=== PATIENT | female | born 1985 | race Caucasian/White ===

== ENCOUNTER → 2019-05-03 10:05 | Outpatient (BNVA) | payer SELFPAY | PROVIDERS: Family Provider Nurse Practitioner Family; PCP Nurse Practitioner Family; Visit Provider Obstetrics & Gynecology | DX: Z34.90 Encounter for supervision of normal pregnancy, unspecified, unspecified trimester (principal) | CPT/HCPCS: 36415; 80307; 81003; 84315; 85027; 86592; 86803; 86850; 86900; 87077; 87086; 87340; 87491; 87591; 88175 ==

== ENCOUNTER → 2019-06-01 10:25 | Outpatient (BNVA) | payer SELFPAY | PROVIDERS: Family Provider Nurse Practitioner Family; PCP Nurse Practitioner Family; Visit Provider Obstetrics & Gynecology | DX: Z34.82 Encounter for supervision of other normal pregnancy, second trimester (principal) | CPT/HCPCS: 81003; 84315 ==

== ENCOUNTER → 2019-06-27 13:07 | Outpatient (BNVA) | payer SELFPAY | PROVIDERS: Family Provider Nurse Practitioner Family; PCP Nurse Practitioner Family; Visit Provider Obstetrics & Gynecology | DX: Z34.82 Encounter for supervision of other normal pregnancy, second trimester (principal) | CPT/HCPCS: 76805 ==

== ENCOUNTER → 2019-06-28 13:51 | Outpatient (BNVA) | payer SELFPAY | PROVIDERS: Family Provider Nurse Practitioner Family; PCP Nurse Practitioner Family; Visit Provider Obstetrics & Gynecology | DX: Z34.90 Encounter for supervision of normal pregnancy, unspecified, unspecified trimester (principal) | CPT/HCPCS: 81003 ==

== ENCOUNTER → 2019-07-27 10:45 | Outpatient (BNVA) | payer MEDICAID, SELFPAY | PROVIDERS: Family Provider Nurse Practitioner Family; PCP Nurse Practitioner Family; Visit Provider Obstetrics & Gynecology | DX: Z34.82 Encounter for supervision of other normal pregnancy, second trimester (principal) | CPT/HCPCS: 81000 ==

== ENCOUNTER → 2019-07-30 13:48 | Outpatient (BNVA) | payer SELFPAY | PROVIDERS: Family Provider Nurse Practitioner Family; PCP Nurse Practitioner Family; Visit Provider Obstetrics & Gynecology | DX: Z34.90 Encounter for supervision of normal pregnancy, unspecified, unspecified trimester (principal); Z34.81 Encounter for supervision of other normal pregnancy, first trimester; O21.9 Vomiting of pregnancy, unspecified | CPT/HCPCS: 86762 ==

== ENCOUNTER → 2019-08-30 13:48 | Outpatient (BNVA) | payer MEDICAID, SELFPAY | PROVIDERS: Family Provider Nurse Practitioner Family; PCP Nurse Practitioner Family; Visit Provider Obstetrics & Gynecology | DX: Z34.82 Encounter for supervision of other normal pregnancy, second trimester (principal) | CPT/HCPCS: 81000; 82950; 85027 ==

== ENCOUNTER → 2019-09-10 10:43 | Outpatient (BNVA) | payer MEDICAID, SELFPAY | PROVIDERS: Family Provider Nurse Practitioner Family; PCP Nurse Practitioner Family; Visit Provider Obstetrics & Gynecology | DX: Z34.90 Encounter for supervision of normal pregnancy, unspecified, unspecified trimester (principal) | CPT/HCPCS: 81000 ==

== ENCOUNTER → 2019-09-27 13:01 | Outpatient (BNVA) | payer MEDICAID, SELFPAY | PROVIDERS: Family Provider Nurse Practitioner Family; PCP Nurse Practitioner Family; Visit Provider Obstetrics & Gynecology | DX: O98.813 Other maternal infectious and parasitic diseases complicating pregnancy, third trimester; O99.89 Other specified diseases and conditions complicating pregnancy, childbirth and the puerperium; Z3A.32 32 weeks gestation of pregnancy | CPT/HCPCS: 81000 ==

== ENCOUNTER → 2019-10-08 14:33 | Outpatient (BNVA) | payer MEDICAID, SELFPAY | PROVIDERS: Family Provider Nurse Practitioner Family; PCP Nurse Practitioner Family; Visit Provider Obstetrics & Gynecology | DX: O99.89 Other specified diseases and conditions complicating pregnancy, childbirth and the puerperium (principal); Z28.3 Underimmunization status; O99.820 Streptococcus B carrier state complicating pregnancy; R82.71 Bacteriuria; Z3A.34 34 weeks gestation of pregnancy | CPT/HCPCS: 81000 ==

== ENCOUNTER → 2019-10-22 13:18 | Outpatient (BNVA) | payer MEDICAID, SELFPAY | PROVIDERS: Family Provider Nurse Practitioner Family; PCP Nurse Practitioner Family; Visit Provider Obstetrics & Gynecology | DX: Z34.90 Encounter for supervision of normal pregnancy, unspecified, unspecified trimester (principal) | CPT/HCPCS: 81000 ==

== ENCOUNTER → 2019-10-26 10:28 | Outpatient (BNVA) | payer MEDICAID, SELFPAY | PROVIDERS: Family Provider Nurse Practitioner Family; PCP Nurse Practitioner Family; Visit Provider Nurse Practitioner Women's Health | DX: O99.89 Other specified diseases and conditions complicating pregnancy, childbirth and the puerperium (principal) | CPT/HCPCS: 81000 ==

== ENCOUNTER → 2019-11-01 12:58 | Outpatient (BNVA) | payer MEDICAID, SELFPAY | PROVIDERS: Family Provider Nurse Practitioner Family; PCP Nurse Practitioner Family; Visit Provider Obstetrics & Gynecology | DX: Z34.83 Encounter for supervision of other normal pregnancy, third trimester (principal) | CPT/HCPCS: 81000 ==

== ENCOUNTER → 2019-11-09 12:54 | Outpatient (BNVA) | payer MEDICAID, SELFPAY | PROVIDERS: Family Provider Nurse Practitioner Family; PCP Nurse Practitioner Family; Visit Provider Obstetrics & Gynecology | DX: O98.813 Other maternal infectious and parasitic diseases complicating pregnancy, third trimester (principal); O99.89 Other specified diseases and conditions complicating pregnancy, childbirth and the puerperium; Z3A.39 39 weeks gestation of pregnancy | CPT/HCPCS: 81000 ==

== ENCOUNTER 2019-11-13 16:30 | Inpatient (IN) | payer MEDICAID, SELFPAY ==
[2019-11-13] VITALS (56 sets, daily range): BP systolic 0–137; BP diastolic 0–82; PULSE 79–141; RESP 17; TEMP 37.1; O2SAT 98–100; BMI 28.6
[2019-11-13 16:44] LABS: Basophils # 0.1 10^3/uL (0.0-0.1); Basophils % 0.3 %; Eosinophils # 0.1 10^3/uL (0.0-0.8); Eosinophils % 0.6 %; Hematocrit 36.2 % (37.0-47.0); Hemoglobin 11.7 g/dL (11.5-15.3); Lymphocytes # 2.8 10^3/uL (0.8-4.8); Lymphocytes % 14.6 %; Mean Corpuscular HGB Conc 32.3 g/dL (30.0-36.0); Mean Corpuscular Hemoglobin 27.1 pg (28.0-34.0); Mean Platelet Volume 14.5 fL (7.4-10.4); Monocytes # 1.2 10^3/uL (0.2-0.9); Neutrophils # 14.81 10^3/uL (1.8-7.7); Neutrophils % 77.3 %; Nucleated Red Blood Cells % 0 %; Platelet Count 251 10^3/cmm (130-400); Red Blood Count 4.31 10^6/uL (4.1-5.3); Red Cell Distribution Width 13.2 % (12.1-15.1); White Blood Count 19.2 10^3/uL (4.0-10.0)
[2019-11-13] MEDS: ampicillin 2,000 MG in sodium chloride 0.9% (plus) 50 ML 100 MG IV (17:11)
[2019-11-13] MEDS: dextrose 5%-lactated ringers 1,000 ML 125 ML IV (17:11)
[2019-11-13 17:19] LABS: Slide Review Slide Review Perform
[2019-11-13] MEDS: lactated ringers 500 ML 999 ML IV ×2 (17:44→18:21)
--- NOTE | 2019-11-13 18:30 | ANES.PREANE2 ---
Pre-Anesthetic Assessment Pre-Anesthetic Assessment: Height/Weight: Height 1.63 m Weight 75.75 kg Temp Pulse Resp BP 98.7 F 102 H 17 115/68 11/13/19 11:58 11/13/19 18:27 11/13/19 11:58 11/13/19 18:27 Preop Diagnosis: IUP Proposed Procedure: Labor epidural Was Beta Bharat taken within 24 hours: N/A Last Intake: 05:03 Social: Social History: No alcohol and No tobacco Exam: Pre-Anes Outpt Exam: alert, oriented x 3 and clear to auscultation bilaterally Pulmonary: Pulmonary: None reported CV/HEM: CV/HEM: None reported : : None reported Hepatic: Hepatic: None reported GI: GI: None reported Metabolic: Metabolic: None reported Musc/skel: Musc/skel: None reported Anesthetic Plan: ASA status: 2 Anesthesia: Anesthesia Evaluation and Eval. for regional block Meds/Allergies Current Medications: Current Medications Generic Name Dose Route Start Last Admin Trade Name Freq PRN Reason Stop Dose Admin Dextrose/Lactated Ringer's 1,000 mls @ 125 m ls/hr 11/13/19 16:15 11/13/19 17:11 Dextrose 5%-Lact ated Ringers IV 125 mls/hr .Q8H MARIA TERESA Administration Lactated Ringer's 500 mls @ 999 mls /hr 11/13/19 17:39 11/13/19 18:21 Lactated Ringers IV 999 mls/hr .Q31M PRN Administration bolis, no 1000ml bags availabl PFSH Anesthesia PFSH: Medical History Group B streptococcal carriage complicating 05/23/2019: GBS asymptomatic bacteriuria. Will need prophylaxis in labor Surgical History [place] teeth extracted (~2002) at age 17 Family History Grandfather Stroke maternal Hypertension Diabetes Mother Breast cancer Grandmother Hypertension Diabetes Social History Smoking and tobacco status: former smoker Quit status (tobacco): has quit using tobacco Year quit tobacco: 2002 Alcohol intake: current Alcohol intake frequency: holidays/special occasions only Other details last substance use: Denies drug use Female Reproductive History: : 3 Para: 2 (1011) Spontaneous abortions: No Data Anesthesia CBC & Chem 7: 11/13/19 16:20 Other Labs: Laboratory Results - last 48 hr 11/13/19 16:20 WBC 19.2 H RBC 4.31 Hgb 11.7 Hct 36.2 L MCV 84.0 MCH 27.1 L MCHC 32.3 RDW 13.2 Plt Count 251 MPV 14.5 H Neut % (Auto) 77.3 Lymph % (Auto) 14.6 [place] % (Auto) 6.0 Eos % (Auto) 0.6 Baso % (Auto) 0.3 Neut # (Auto) 14.81 H Lymph # (Auto) 2.8 [place] # (Auto) 1.2 H Eos # (Auto) 0.1 Baso # (Auto) 0.1 Nucleated RBC % (auto) 0 Nucleated RBCs # 0.0 Cardiac Studies: No Data to Display
--- NOTE | 2019-11-13 19:11 | ANES.PROC ---
Anesthesia Procedures Procedure/Date: 11/13/19 Labor epidural Epidural: Time Out Performed: Yes Consents Signed: Procedure Consent Consent: requested by attending/covering physician, from patient, risks and benefits reviewed and patient agrees to proceed Lumbar Level: L3-L4 Epidural position: sitting Epidural procedure: sterile prep of area, 1% lidocaine to numb the area (3 cc), negative for paresthesia passed, neg for paresthesia, test dose given (3 cc), 1.5% xylocaine 1:200k epi, 0.2% Ropivacaine bolus ml (10 cc ), placed PCEA, no systemic response, sterile dressing applied, L.U.D. no apparent complications and 0.2% Ropiavacaine @ mls/hr (13 mls/hr ) Additional Comments: LAMBERT at 6 cm, catheter threaded to 13 cm at skin. Pump started with no complications. patient states pain is improving with contractions at this time. See OBYX system for VS
--- NOTE | 2019-11-13 19:31 | P.PN_ITS ---
Subjective Subjective: Interval history: 34-year-old white female 3, para 1-0-1-1 with an LMP of 02/06/2019 and an EDC of 11/13/2019 based on LMP and consistent with a 19-week ultrasound, which places her at 40-0/7 weeks gestation today. She presented to labor and delivery with complaint of contractions. She was found to be in labor after making cervical change. She currently has an ep idural and is very comfortable. She is without complaints at this time. Vitals/I&O/Wt Last Vital Signs Temp 98.7 F 11/13/19 11:58 Pulse 93 11/13/19 19:27 Resp 17 11/13/19 11:58 BP 131/63 11/13/19 19:27 Pulse Ox 100 11/13/19 19:26 11/13/19 11/13/19 11/13/19 06:59 14:59 22:59 Intake Total 500 / 500 Balance 500 / 500 Weight last 48 hrs Weight 167 lb Physical Exam Const: COMMON NORMALS: no acute distress, average body habitus, alert and well nourished GENERAL APPEARANCE: well developed ORIENTATION/CONSCIOUSNESS: Yes oriented to person, Yes oriented to place and Yes oriented to time : OTHER: External genitalia: No lesions seen. Normal in appearance. Perineum/anus: No lesions noted. Urethral meatus: No lesions, masses, or prolapse noted. Vagina: No palpable masses noted. Cervix: 90% effaced, 7 cm dilated, -2 station. Artificial rupture membranes performed with clear fluid present. Neuro: SENSORIUM/ORIENTATION: Yes alert, Yes oriented to person, Yes oriented to place and Yes oriented to time Psych: COMMON NORMALS: normal affect MOOD & AFFECT: Yes euthymic mood Data : 11/13/19 16:20 Other data: External monitoring: Baseline heart rate 140s with moderate variability and accelerations present. No decelerations noted. Category 1 tracing. Contractions every 3 to 4 minutes. A&P Assessment and plan (1) Supervision of normal : at 40-0/7 weeks gestation in labor. Expect vaginal delivery. Status: Acute Qualifiers: Normal : other normal Trimester: third trimester Qualified Code(s): Z34.83 - Encounter for supervision of other normal , third trimester (2) Group B streptococcal carriage complicating : GBS positive. Patient has been started on ampicillin for GBS prophylaxis. Status: Acute (3) Rubella non-immune status, antepartum: Will need MMR following delivery. Status: Acute Attestations Medical Necessity Statement*: Patient is in labor. 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
[2019-11-13] MEDS: oxytocin 30 UNIT/500 ML BAG 600 UNIT IV (20:36)
--- NOTE | 2019-11-13 20:53 | P.PCNOB_ITS ---
Delivery Note: Date of delivery: November 13, 2019 Pre-delivery diagnoses: 1. Term at 40-0/7 weeks gestation 2. Group B strep positive carrier status 3. Rubella nonimmune Post-delivery diagnoses: 1. Term at 40-0/7 weeks gestation 2. Group B strep positive carrier status 3. Rubella nonimmune 4. Viable female Procedure: Spontaneous vaginal delivery Op report anesthesia: Epidural Delivering Physician: Dr. Houston Flaherty Estimated blood loss (mL): 100 Pre-Delivery Course: Patient is a 34-year-old white female 3, para 1-0-1-1 with an LMP of 02/06/2019 and an EDC of 11/13/2019 based on LMP and consistent with a 19-week ultrasound, which placed her at 40-0/7 weeks gestation. She presented to labor and delivery complaining of contractions. She made cervical change and was admitted to the hospital. She became more uncomfortable and had epidural placed. By 19:30, she was 7 cm dilated. Artificial rupture membranes was performed at that time with clear fluid present. She continued to progress and was found to be completely dilated by 20:18. heart rate was reassuring during the labor course. She was started on ampicillin for group B strep prophylaxis. Delivery: Patient started pushing at 20:22 and delivered at 20:34 as a spontaneous vaginal delivery of an occiput anterior female over an intact perineum under epidural anesthesia. Following delivery of the infant's head, no nuchal cords were noted. Rest of the delivered atraumatically with the shoulders square on. Nose and mouth were suctioned with bulb suction. was placed on the mother's abdomen where the cord was clamped and then cut by the father of the baby. Baby was spontaneously crying and left in the care of the waiting nurses. Cord blood was obtained. Pitocin bolus was started. Placenta delivered intact by simple expression at 20:37. The cervix and vagina were inspected and noted to be intact. The labia were inspected and noted to be intact except for a second-degree midline perineal laceration. This was repaired with 3-0 Vicryl suture. FINDINGS 1. Viable female weighing 7 lbs 9 oz (3430 g) with Apgars of 9 at 1 minute and 9 at 5 minutes. 2. Three-vessel cord with no loops of nuchal cord noted. 3. Normal-appearing placenta with an eccentric cord insertion. Post-Delivery Status: Mother and infant were left to recover in satisfactory condition. 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
[2019-11-13] MEDS: lanolin oint 7 gm 1 APPLIC TOPICAL (23:59)
[2019-11-13] MEDS: benzocaine-menthol 78 gm Canister 1 SPRAY TOPICAL (23:59)
[2019-11-14] MEDS: TRAMadol 50 mg Tablet PO
[2019-11-14 00:40] VITALS: BP 104/60; PULSE 81; RESP 16; TEMP 36.9
[2019-11-14 03:15] VITALS: BP 106/61; PULSE 79; RESP 16; TEMP 36.8; O2SAT 96
[2019-11-14 06:36] LABS: Hematocrit 30.7 % (37.0-47.0); Hemoglobin 10.1 g/dL (11.5-15.3); Mean Corpuscular HGB Conc 32.9 g/dL (30.0-36.0); Mean Corpuscular Hemoglobin 27.5 pg (28.0-34.0); Mean Corpuscular Volume 83.7 fL (81-99); Platelet Count 210 10^3/cmm (130-400); Positive M 1; Red Blood Count 3.67 10^6/uL (4.1-5.3); Red Cell Distribution Width 13.2 % (12.1-15.1); White Blood Count 22.5 10^3/uL (4.0-10.0)
[2019-11-14] MEDS: prenatal vitamin Capsule 1 CAP PO (09:07)
[2019-11-14] MEDS: docusate sodium 100 mg Capsule PO (09:08)
[2019-11-14 11:00] VITALS: BP 114/61; PULSE 82; RESP 16; O2SAT 95
[2019-11-14 15:43] VITALS: BP 100/65; PULSE 71; RESP 16; TEMP 36.5; O2SAT 98
--- NOTE | 2019-11-14 18:13 | PM.OBGYDC ---
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 Will need prophylaxis in labor (3) Rubella non-immune status, antepartum: Status: Acute Reason for Visit Reason for Visit: Abdominal pain Hospital Course Hospital Course: Patient is a 34-year-old white female 3, para 1-0-1-1 with an LMP of 02/06/2019 and an EDC of 11/13/2019 based on LMP and consistent with a 19-week ultrasound. This places her at 40-0/7 weeks gestation. She presented to labor and delivery with a complaint of contractions on 11/13/2019. She was found to be in labor. She was started on ampicillin due to positive group B strep carrier status. She had epidural placed. By 19:30 she was 7 cm dilated and had artificial rupture membranes performed at that time. She continued to progress and was completely dilated by 20:18. She started pushing at 20:22 and delivered at 20:34 as a spontaneous vaginal delivery of an occiput anterior female infant over an intact perineum. The baby weighed 7 lbs 9 oz (3430 g) with Apgars of 9 at 1 minute and 9 at 5 minutes. She had a second-degree midline perineal laceration which was repaired without difficulty. On day 1, she was doing well. She was ambulating without lightheadedness or dizziness. She was tolerating a regular diet without nausea or vomiting. She reported her pain was well controlled. She denied any shortness of breath or chest pains. She reported urinating without difficulty. She stated that her bleeding had slowed. She was breast-feeding. She was requesting to go home. Physical exam: See below Plan Discharged home. Patient will be rooming in with the baby since the baby will not be released today because of the positive group B strep status. Discharge instructions were discussed with her. She was to follow-up in the office in approximately 6 weeks. Information Peripartum Data: Infant Delivery Method: Vaginal Laceration description: Perineal - 2nd Degree complications: none : 1: Gender: Female Physical Exam Const: COMMON NORMALS: no acute distress, average body habitus, alert and well nourished GENERAL APPEARANCE: well developed ORIENTATION/CONSCIOUSNESS: Yes oriented to person, Yes oriented to place and Yes oriented to time Resp: COMMON NORMALS: normal respiratory effort and clear to auscultation bilaterally AUSCULTATION: clear to auscultation bilaterally Cardio: COMMON NORMALS: regular rate, regular rhythm, No gallops present (Cardio) and No rub (Cardio) RATE: regular rate RHYTHM: regular rhythm GI: COMMON NORMALS: Soft to palpation, non-tender, No hepatosplenomegaly present and no masses (Except for nontender, firm uterus approximately 2 fingerbreadths below umbilicus.) AUSCULTATION: Yes normoactive bowel sounds PALPATION: Yes Soft to palpation, Yes No hepatosplenomegaly present and No Hernia present : EXTERNAL FEMALE EXAM: No Hernia present Extremity: COMMON NORMALS: no calf tenderness GENERAL: Yes edema (Trace to 1+ lower extremity edema) Neuro: SENSORIUM/ORIENTATION: Yes alert, Yes oriented to person, Yes oriented to place and Yes oriented to time Psych: COMMON NORMALS: normal affect MOOD & AFFECT: Yes euthymic mood Discharge Data Data Completed and Pending: Labs from last 24 hours 11/14/19 06:15 WBC 22.5 H RBC 3.67 L Hgb 10.1 L Hct 30.7 L MCV 83.7 MCH 27.5 L MCHC 32.9 RDW 13.2 Plt Count 210 MPV 14.0 H Vitals: Last Vital Signs Temp 97.7 F 11/14/19 15:43 Pulse 71 11/14/19 15:43 Resp 16 11/14/19 15:43 BP 100/65 11/14/19 15:43 Pulse Ox 98 11/14/19 15:43 Discharge Plan Discharge Patient Disposition: Home, Self-Care Condition: Stable Prescriptions: Continued Gummies 400 mcg-35 mg- 25 mg-5 mg tablet,chewable 2 tab PO RF: 0 Discharge Orders: Discharge Order (Routine); Ordered 11/14/19 Ordered By: Houston Flaherty Referrals: Houston Flaherty MD [Physician] - 6 Weeks Discharge Diet: Regular Discharge Activity: Limit activity as instructed Patient Instructions: OB Vaginal Deliveries - [facility] Activity Restrictions/Additional Instructions: May use [id number] ibuprofen 200 mg, 3 tablets 4 times a day or 4 tablets 3 times a day, as needed for pain Discharge Attestations 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
[2019-11-14 20:05] VITALS: BP 95/65; PULSE 84; RESP 16; TEMP 36.7; O2SAT 98
== END 2019-11-14 20:09 | disposition home or self-care (01) | DRG 807 ==
LOC: OBGYN 11-14 08:59 → OPOB 11-14 08:59
PROVIDERS: Obstetrics & Gynecology; Admitting Provider Obstetrics & Gynecology; Family Provider Nurse Practitioner Family; PCP Nurse Practitioner Family; Visit Provider Obstetrics & Gynecology
DX: O99.824 Streptococcus B carrier state complicating childbirth (principal); Z37.0 Single live birth; Z3A.40 40 weeks gestation of pregnancy; O70.1 Second degree perineal laceration during delivery
CPT/HCPCS: 12345; 36415; 51702; 59025; 59409; 85025; 85027; 96374; 99211; J0290; J2795; J3010

== ENCOUNTER → 2020-08-29 11:10 | Outpatient (BNVA) | payer BC, MEDICAID, SELFPAY | PROVIDERS: PCP Nurse Practitioner Family; Visit Provider Obstetrics & Gynecology | DX: Z01.812 Encounter for preprocedural laboratory examination (principal); Z20.822 Contact with and (suspected) exposure to COVID-19 | CPT/HCPCS: 87635 ==

== ENCOUNTER 2020-09-04 07:14 | Day surgery (SDC) | payer BC, MEDICAID, SELFPAY ==
--- NOTE | 2020-08-26 10:10 | ANES.PREANE2 ---
Pre-Anesthetic Assessment Pre-Anesthetic Assessment: Height/Weight: Height 1.63 m Preop Diagnosis: IUP Proposed Procedure: Operation Date: 09/04/20 11:30 Proposed Procedures p Laparoscopic bilateral total salpingectomy (07710) Z30.2(Bilateral) - Yeison Norton MD Familial anesthetic complications: None Was Beta Bharat taken within 24 hours: N/A Was Clonidine taken within 24 hours: N/A Social: Social History: No alcohol and No tobacco Exam: Pre-Anes Outpt Exam: alert, oriented x 3, clear to auscultation bilaterally and regular rate & rhythm Airway: Cervical ROM: WNL MP: 2 Dentition: Full Anesthetic Plan: ASA status: 1 Anesthesia: General Risk of > 500 ml blood loss (7ml/kg in children): No PFSH Anesthesia PFSH: Medical History No pertinent past medical history Denies diabetes, asthma, hypertension, seizures, DVT/PE PCP: CHIOMA Seymour Surgical History [place] teeth extracted (~2002) at age 17 Family History Grandfather Stroke maternal Hypertension maternal Diabetes maternal Mother Breast cancer diagnosed at age 51 Grandmother Hypertension maternal Heart disease maternal Denies family history of Colon cancer Ovarian cancer Hyperlipidemia Uterine cancer Thyroid condition Social History Smoking and tobacco status: former smoker Quit status (tobacco): has quit using tobacco Year quit tobacco: 2002 Alcohol intake: current Alcohol intake frequency: holidays/special occasions only Other details last substance use: Denies drug use Female Reproductive History: Para: 2 (1011) Spontaneous abortions: No Data Anesthesia Cardiac Studies: No Data to Display
[2020-09-03 17:05] VITALS: BMI 25.7
[2020-09-04] VITALS (11 sets, daily range): BP systolic 92–134; BP diastolic 47–75; PULSE 70–96; RESP 14–18; TEMP 36.1–37; O2SAT 95–100; BMI 25.7
[2020-09-04 07:50] LABS: OR HCG Qualitative Urine Negative (Negative)
[2020-09-04] MEDS: sodium chloride 0.9% 1,000 ML 30 ML IV (07:51)
[2020-09-04 07:58] LABS: Basophils # 0.1 10^3/uL (0.0-0.1); Basophils % 0.6 %; Eosinophils # 0.2 10^3/uL (0.0-0.8); Eosinophils % 2.5 %; Hematocrit 42.5 % (37.0-47.0); Hemoglobin 13.5 g/dL (11.5-15.3); Lymphocytes # 2.5 10^3/uL (0.8-4.8); Lymphocytes % 28.3 %; Mean Corpuscular HGB Conc 31.8 g/dL (30.0-36.0); Mean Corpuscular Hemoglobin 27.4 pg (28.0-34.0); Mean Corpuscular Volume 86.2 fL (81-99); Mean Platelet Volume 12.8 fL (7.4-10.4); Monocytes # 0.7 10^3/uL (0.2-0.9); Monocytes % 7.9 %; Neutrophils # 5.35 10^3/uL (1.8-7.7); Neutrophils % 60.5 %; Nucleated Red Blood Cells % 0 %; Platelet Count 348 10^3/cmm (130-400); Red Blood Count 4.93 10^6/uL (4.1-5.3); Red Cell Distribution Width 12.5 % (12.1-15.1); White Blood Count 8.8 10^3/uL (4.0-10.0)
--- NOTE | 2020-09-04 08:00 | P.HPUD_ITS ---
Surgery/Procedure H&P Update DATE OF PROCEDURE: September 04, 2020 DATE H&P PERFORMED: 08/25/20 H&P UPDATE INFORMATION: I have reviewed H&P completed within last 30 days, I have examined patient prior to procedure, No changes to prior documentation and H&P is in [facility] [place] on date indicated PREOP DIAGNOSIS: Request for sterilization PLANNED PROCEDURE: Operation Date: 09/04/20 08:25 Proposed Procedures p Laparoscopic bilateral total salpingectomy (56298) Z30.2(Bilateral) - Yeison Norton MD
--- NOTE | 2020-09-04 08:12 | P.ANESUD_ITS ---
Pre-Anesthetic Update Pre-Anesthetic Assessment: Date of Surgery/Procedure: 09/04/20 Preop Maria Teresa gnosis: Request for sterilization Proposed Procedure: Operation Date: 09/04/20 08:25 Proposed Procedures p Laparoscopic bilateral total salpingectomy (75803) Z30.2(Bilateral) - Yeison Norton MD Any changes to Pre-Anesthetic Assessment?: No Last Intake: Intake Last Liquid Date 09/03/20 Last Liquid Time 18:00 Last Solid Date 09/03/20 Last Solid Time 18:00 Labs Last 48hrs: Laboratory Results - last 48 hr 09/04/20 09/04/20 07:40 07:48 WBC 8.8 RBC 4.93 Hgb 13.5 Hct 42.5 MCV 86.2 MCH 27.4 L MCHC 31.8 RDW 12.5 Plt Count 348 MPV 12.8 H Neut % (Auto) 60.5 Lymph % (Auto) 28.3 [place] % (Auto) 7.9 Eos % (Auto) 2.5 Baso % (Auto) 0.6 Neut # (Auto) 5.35 Lymph # (Auto) 2.5 [place] # (Auto) 0.7 Eos # (Auto) 0.2 Baso # (Auto) 0.1 Nucleated RBC % (a uto) 0 Nucleated RBCs # 0.0 Urine HCG, Qual Negative Vitals: Temperature 98.3 F 09/04/20 07:26 Temperature Source Tympanic 09/04/20 07:26 Pulse Rate 70 09/04/20 07:26 Respiratory Rate 18 09/04/20 07:26 Blood Pressure 134/54 09/04/20 07:26 Blood Pressure Dotty n 80 09/04/20 07:26 Pulse Oximetry 100 09/04/20 07:26 Oxygen Delivery Me thod 09/04/20 07:35 Exam: Pre-Anes Outpt Exam: alert, oriented x 3, clear to auscultation bilaterally and regular rate & rhythm Cardiac Studies: No Data to Display
[2020-09-04] MEDS: silver nitrate applicator 1 EACH TOPICAL (09:24)
--- NOTE | 2020-09-04 09:46 | P.OP_ITS ---
Operative Report Date of procedure: September 04, 2020 OPERATIVE REPORT Date of surgery: 09/04/2020 Date of dictation: 09/04/2020 Preoperative diagnosis: Multiparity desiring permanent sterilization Postoperative diagnosis/findings: 8-week size retroverted uterus, mobile,, no adnexal masses. Laparoscopy, normal tubes and ovaries bilaterally, normal uterus, no ideations, no obvious pathology Procedure done: Laparoscopic bilateral total salpingectomy for sterilization Specimens removed/disposition of specimens: Bilateral tubes sent to pathology with the right tube tagged Surgeon: Dr. Yeison Christensen clinical services assistant: Danielle Swan Anesthesia: General endotracheal tube anesthesia Estimated blood loss: 25 ml Intravenous fluids: 850 mL of LR Urine output: 300 mL Medications: As per anesthesia records Complications: None, patient was taken to the recovery room in a stable condition. PROCEDURE: After consents were signed patient was taken to the operating room where she was placed under general anesthesia without any difficulty. She was placed supine on the table in the lithotomy position. Exam under anesthesia revealed findings noted above. She was then prepped and draped in usual sterile fashion. Weighted speculum and anterior wall retractors were placed in the vagina, cervix visualized and grasped with a tenaculum. ZUMI uterine manipulator was placed into the uterus without any difficulty. Catheter was placed, instruments were removed from the vagina and the legs were lowered. Attention was turned towards the abdomen where local anesthetic was injected in to her umbilicus. A 10 mm skin incision was made and a 10 mm port was placed through the umbilicus using an open technique--- fascia was identified and te nted up with [place] clamps and directly incised using curved Mayos. Peritoneum was then bluntly entered digitally and palpation revealed no adhesions around site of entry. Allen trocar was then attached to the fascia and inflated. Once intra-abdominal entry was confirmed gas was turned on and intra-abdominal opening pressure was 2. The abdomen is insufflated to the pressure was 14. Survey of the abdomen revealed findings noted above. Two 5 mm trocar was placed into the left and right lower quadrant under direct visualization after injecting local anesthetic. The Pint Pleaset device was used to c lamp, cauterize and then cut the mesosalpinx under the fallopian tube starting at the fimbriated end and moving towards the uterus. This was done in a sequential fashion in such a way that the entire fallopian tube was from the sidewall and the uterus. The small cornual stump was cauterized as well. This was done first on the right side and then the left side without any difficulty. The right and left fallopian tubes were taken out of the umbilical port without any difficulty. No bleeding was noted at sites of surgery. Trochars were removed under direct visualization. All instruments removed from the abdomen and the abdomen was desufflated. The fascia on the umbilical port was closed with 0 Vicryl in a continuous fashion and good reapproximation was obtained-care was taken to tent up the fascia throughout the closure. The skin incisions was closed with 4-0 Monocryl in a subcuticular fashion good reapproximation and hemostasis was noted. The incisions were dressed with Steri- Strips Telfa and Tegaderm. The ZUMI and Swartz catheter were removed and good hemostasis was noted. The patient was extubated without any difficulty and taken to the recovery room in a stable condition. FOLLOW UP: Follow-up in 2 weeks and 6 weeks with surgeon MEDICATION ON DISCHARGE: Colace 100 mg by mouth every 12 hours when necessary constipation, 30 tablets, no refills Ibuprofen 800 mg by mouth every 8 hours when necessary pain, 60 tablets, no refills. Flushing 5/325 mg 1 tablet by mouth every 6 hours when necessary pain,25 tablets, no refills Continue other home medication DISPOSITION: Home in a stable condition This documentation was created by [employer] principal consulting engineer software (known for inherent principal consulting engineer error). Every effort was made to assure accuracy of principal consulting engineer. Any obvious errors or omissions should be clarified with the author of the document. Pre-op Diagnosis: Request for sterilization
[2020-09-04] MEDS: fentaNYL 50 mcg/mL INJ 2mL IVP (09:50)
--- NOTE | 2020-09-04 09:55 | SUR.PHASEI ---
PT RESTING QUIETLY SEE PAIN MEDS GIVEN, VSS.
[2020-09-04] MEDS: HYDROcodone-acetaminophen 5-325 mg Tablet 1 TAB PO (11:09)
--- NOTE | 2020-09-04 12:34 | ANE.PACU2 ---
Inpatient post-anesthesia follow up: Airway intact: Yes Vital signs: Temperature 97 F Pulse Rate 77 Respiratory Rate 18 Blood Pressure 100/54 Pulse Oximetry 95 Oxygen Delivery Me thod Room Air Oxygen Flow Rate Fraction of Inspir ed Oxygen Hydration adequate: Yes Nausea and vomiting: No Pain level: 2 Mental status: Baseline
== END 2020-09-04 12:02 | disposition home or self-care (01) ==
PROVIDERS: PCP Nurse Practitioner Family; Visit Provider Obstetrics & Gynecology
PROC: (CPT 58661; principal; 2020-09-04 08:15)
DX: Z30.2 Encounter for sterilization (principal); Z87.891 Personal history of nicotine dependence
CPT/HCPCS: 58661; 36415; 84703; 85025; 86850; 86900; 88302; J1100; J2250; J2405; J2704; J2710; J3010; J3490; J7030